=== PATIENT | female | born 1945 | race Caucasian/White ===

== ENCOUNTER 2020-12-25 21:52 | Emergency (ER) | payer MEDICARE, MEDICAID ==
[~2020-12-25] VITALS: Ht 165.1 cm; Wt 63.5 kg
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
[2020-12-25] MEDS ORDERED: IBUPROFEN 600 MG TABLET ONE (22:18)
[2020-12-25] MEDS ORDERED: LORAZEPAM 0.5 MG TABLET ONE (22:18)
[2020-12-25] MEDS ORDERED: IBUPROFEN 600 MG TABLET PO ONE (22:30)
[2020-12-25] MEDS ORDERED: LORAZEPAM 0.5 MG TABLET PO ONE (22:30)
[2020-12-25 23:45] LABS: BASOPHILS % (AUTO) 0.4 % (0.0-2.0); EOSINOPHILS % (AUTO) 0.5 % (0.0-6.0); HEMATOCRIT 37 % (33-45); HEMOGLOBIN 12.2 g/dL (11.5-14.8); LYMPHOCYTES # (AUTO) 1.1 K/uL (0.8-4.8); LYMPHOCYTES % (AUTO) 17.1 % (20.0-44.0); MEAN CORPUSCULAR HGB CONC 33 g/dl (31.0-36.0); MEAN CORPUSCULAR VOLUME 83 fL (82-100); MONOCYTES # (AUTO) 0.4 K/uL (0.1-1.30); NEUTROPHILS # (AUTO) 4.7 K/uL (1.8-8.9); PLATELET COUNT (AUTO) 134 K/uL (150-450); RED BLOOD CELL COUNT(AUTO) 4.41 MIL/uL (4.0-5.2); WHITE BLOOD COUNT (AUTO) 6.1 K/uL (4.3-11.0)
[2020-12-25 23:53] LABS: CALCIUM, SERUM 8.6 mg/dL (8.5-10.1); CREATININE 0.9 mg/dL (0.6-1.3); POTASSIUM 3.3 mmol/L (3.5-5.1)
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
[2020-12-26] MEDS ORDERED: CT SWABBABLE VALVE TRANS SET 1 EA INFUS.SET MC ONE (00:07)
[2020-12-26] MEDS ORDERED: IOHEXOL-350 100 ML VIAL IV ONE (00:07)
[2020-12-26] MEDS ORDERED: IV NS 0.9% 250 ML IV ONE (00:07)
--- NOTE | 2020-12-26 00:10 | NUR ---
BROUGHT TO CT
[2020-12-26] MEDS ORDERED: HYDR-3976 GT (01:32)
--- NOTE | 2020-12-26 01:49 | NUR ---
Patient discharged to home in stable condition. Written and verbal after care instructions given. Patient verbalizes understanding of instruction and RX.
[2020-12-26 02:12] VITALS: BP 131/76
== END 2020-12-26 02:15 | disposition home or self-care (01) ==
LOC: ER 21:54
DX: S22.20XA Unspecified fracture of sternum, initial encounter for closed fracture (principal); S22.49XA Multiple fractures of ribs, unspecified side, initial encounter for closed fracture; R07.89 Other chest pain; I10 Essential (primary) hypertension; E11.9 Type 2 diabetes mellitus without complications; Z90.89 Acquired absence of other organs; V43.52XA Car driver injured in collision with other type car in traffic accident, initial encounter; Y93.89 Activity, other specified; Y92.413 State road as the place of occurrence of the external cause; Y99.8 Other external cause status
CPT/HCPCS: 36415; 71250; 71260; 74177; 80048; 85025; 99285; J7050; Q9967